=== PATIENT | male | born 1990 | race Caucasian/White ===

== ENCOUNTER 2022-08-19 10:32 | Emergency (ER) | payer OTHER, MEDICAID, SELFPAY ==
[2022-08-19 10:45] VITALS: BP 134/88; PULSE 103; RESP 15; TEMP 36.1; O2SAT 98; BMI 28.1
--- NOTE | 2022-08-19 10:54 | DI.US.S_ITS ---
PROCEDURE: US ABDOMEN LIMITED INDICATIONS: RLQ PAIN/ HERNIA EVAL TECHNIQUE: Real-time focused scanning was performed of the inguinal region, with image documentation. COMPARISON: None. FINDINGS: No inguinal hernia. Right inguinal lymph node with a normal reniform shape and reactive fatty hilum. IMPRESSION: No inguinal hernia. Dictated by: Dre Castillo M.D. on 08/19/2022 at 12:13 Approved by: Dre Castillo M.D. on 08/19/2022 at 12:14
--- NOTE | 2022-08-19 12:19 | ED_ITS ---
HPI - Abdominal Pain <Marta Javier PA-C - Last Filed: 08/19/22 13:14> General Chief Complaint: Abdominal Pain Stated Complaint: hernia pain Time Seen by Provider: 08/19/22 10:54 Source: patient Mode of arrival: Ambulatory History of Present Illness HPI narrative: 32-year-old male with history of known right inguinal hernia presents with concern for persistent right-sided hernia and testicular pain occurring with his work activity. Patient is a outdoor landscape architect, he is known about the hernia since 2019 and has had symptoms since 2017. He states in the last few months he has been having increasing problems where he is unable to continue working because he starts having intense pain and gets a tugging sensation from his right inguinal region into his groin seeming to pull up on his right testicle. He states it is also affecting his sex life, he and his are trying to have a child and there are times when he has discomfort associated with his hernia especially if he is had a hard work day where he is disinterested due to pain. He endorses sometimes when his pain is intense and he is doing physical activity he does feel that there is a lump in his groin on the right side and that he can kind of press on it and make it go away. He did state he had plan to see Dr. Gonzalez earlier this month but was unfortunately unable to make the appointment. He denies any current pain, also denies generalized abdominal pain, denies fevers, chills, nausea, vomiting, diarrhea, dysuria or any other symptoms. 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 Well-developed patient, in mild distress. HEAD: Atraumatic. Normocephalic. EYES: Pupils equal round and reactive. Extraocular motions intact. No scleral icterus. No injection or drainage. ENT: Nose without bleeding, purulent drainage. Airway patent. NECK: Trachea midline. Non tender CARDIOVASCULAR: Regular rate and rhythm without murmurs, gallops, or rubs. RESPIRATORY: Clear to auscultation. Breath sounds equal bilaterally. No wheezes, rales, or rhonchi. GASTROINTESTINAL: Abdomen soft, non-tender, nondistended, palpation over the R inguinal region does not reveal any masses or tenderness the patient endorses this is the location where he sometimes has pain. :complete exam is not perfomed. Testicles non-tender w/o mass. On palpation of inguinal canal on the right hernia is felt when pt coughs, this is not present on the left. There is no discoloration of skin of groin, no visible rash or lesions, no obvious swelling. Pt has no tenderness on exam. EXTREMITIES: No edema or joint tenderness. BACK: Nontender without deformity or crepitance. No flank tenderness. NEURO: AOx3. SKIN: No rash or erythema of visible areas Initial Vital Signs Initial Vital Signs: Vital Signs Temperature 97.0 F L 08/19/22 10:45 Pulse Rate 103 H 08/19/22 10:45 Respiratory Rate 15 08/19/22 10:45 Blood Pressure 134/88 08/19/22 10:45 Pulse Oximetry 98 08/19/22 10:45 Oxygen Delivery Method Room Air 08/19/22 10:45 <Svetlana Estrada DO - Last Filed: 08/19/22 19:05> Initial Vital Signs Initial Vital Signs: Vital Signs Temperature 97.0 F L 08/19/22 10:45 Pulse Rate 103 H 08/19/22 10:45 Respiratory Rate 15 08/19/22 10:45 Blood Pressure 134/88 08/19/22 10:45 Pulse Oximetry 98 08/19/22 10:45 Oxygen Delivery Method Room Air 08/19/22 10:45 Course <Marta Javier PA-C - Last Filed: 08/19/22 13:14> Orders Ordered: ED Orders 08/19/22 10:54 US abdomen limited Stat Vital Signs Vital signs: Vital Signs - 8 hr 08/19/22 10:45 Temperature 97.0 F L Pulse Rate 103 H Respiratory Rate 15 Blood Pressure 134/88 Pulse Oximetry 98 Oxygen Delivery Method Room Air <Svetlana Estrada DO - Last Filed: 08/19/22 19:05> Orders Ordered: ED Orders 08/19/22 10:54 US abdomen limited Stat Vital Signs Vital signs: Vital Signs - 8 hr 08/19/22 10:45 Temperature 97.0 F L Pulse Rate 103 H Respiratory Rate 15 Blood Pressure 134/88 Pulse Oximetry 98 Oxygen Delivery Method Room Air MDM - Abdominal Pain <Marta Javier PA-C - Last Filed: 08/19/22 13:14> Differential Diagnosis Differential diagnosis: Likely abdominal pain and other (inguinal hernia) Medical Records Attestation: I reviewed the patient's medical records. Imaging Data US - abdomen: Radiologist's Impression: [address] [address] Ultrasound Report Signed Patient: Girish Bennett MR#: [id number] : 1990 Acct:[id number] Age/Sex: 32 / M Date of Service: 08/19/22 Loc: ED Accession Number: [id number] ?? Procedure: US abdomen limited Ordering Provider: Marta Javier P.A-C PROCEDURE:? US ABDOMEN LIMITED ? INDICATIONS:? RLQ PAIN/ HERNIA EVAL ? TECHNIQUE:? Real-time focused scanning was performed of the inguinal region, with image documentation.? ? COMPARISON:? None. ? FINDINGS:? No inguinal hernia.? Right inguinal lymph node with a normal reniform shape and reactive fatty hilum. ? IMPRESSION:? No inguinal hernia. ? ? Dictated by: Dre Castillo M.D. on 08/19/2022 at 12:13 ? ? Approved by: Dre Castillo M.D. on 08/19/2022 at 12:14?? 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 Known history of inguinal hernia, ultrasound obtained today does not show evidence of inguinal hernia but physical exam is notable for 1 with palpation of the inguinal canal on the right. Patient has previously attempted to see General surgery as an outpatient but unfortunately was unable to make his appointment, lives on [address]. He seems very motivated to get this taken care of as it is affecting his sex life and his work life and personal life, today he is not in any significant pain and I have low concern for torsion or incarcerated hernia. He is encouraged to follow-up closely with General surgery, call their office today to get scheduled. Return precautions, ED precautions provided, follow-up plan discussed, all questions answered. 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 Discharge Plan Departure Patient Disposition: Home Clinical Impression: Hernia Activity Restrictions/Additional Instructions: *You have been diagnosed with inguinal hernia right *What to do: *Please continue to take your regular medications as directed. [ ] New medication prescriptions sent to your pharmacy: [ ] [ ] New medication written as a paper prescription [* ] No new medications given *Please follow up with your primary care provider in 2-3 days, call for an appointment. Let them know you were seen in the Emergency Department and that we ask that you be seen in follow up. We will electronically transmit a record of today's note if your PCP is in our system. We did do an ultrasound today which did show a right-sided inguinal lymph node but on physical exam I do feel that you have a hernia, noted when you cough, you have been having increasing pain with your work activity due to this and I strongly encourage you to see General surgery to get this further evaluated and determine if you are a candidate for surgery or which treatment is recommended at this point in time. There are 2 surgeons names listed in your paperwork below, you can also follow-up with the office you had plan to see earlier this month, do let them know you were seen in the emergency department today and we strongly recommended you get into be seen as an outpatient--for further eval/surgical planning if indicated so that you can get this taken care of. *If you do not have a primary care provider please contact the [facility] Resource line at [phone]. They will ask some questions about your medical history and help get you set up with a doctor in the community. *Return to Emergency Department if you should have any new, worsening or concerning symptoms, such as [fever greater than 101 F, shaking chills, worsening pain, persistent vomiting or other bothersome symptoms] Referrals: Liam Gonzalez MD [Physician] - Alberto Ca MD [Physician] - Miscellaneous,MD Shirin [Primary Care Provider] - Stand Alone Forms: Patient Portal/API <Svetlana Estrada DO - Last Filed: 08/19/22 19:05> Cosign ED Attending Levature Attestation: I was immediately available in the department for consultation. Documentation has been reviewed. Case was discussed. Agree with plan.
== END 2022-08-19 13:09 | disposition home or self-care (01) ==
PROVIDERS: Emergency Provider Student in an Organized Health Care Education/Training Program; Family Provider Family Medicine
DX: K40.90 Unilateral inguinal hernia, without obstruction or gangrene, not specified as recurrent (principal); N50.811 Right testicular pain
CPT/HCPCS: 76705; 99283

== ENCOUNTER 2022-09-07 10:47 | Day surgery (SDC) | payer OTHER, MEDICAID, SELFPAY ==
[2022-09-02 08:19] VITALS: BMI 28.1
--- NOTE | 2022-09-07 11:07 | SUR.PREOP ---
Arrived from [place]. Has been at a job site ([employer]) for 4 days and has not showered in that time. Given body was and taken to bathroom 1 to shower. CHG wipes given and instructed to clean abdomen and groin area after shower with CHG.
[2022-09-07 11:19] VITALS: BP 125/72; PULSE 108; RESP 18; TEMP 37.3; O2SAT 98; BMI 28.1
[2022-09-07] MEDS: LACTATED RINGERS 1,000 ML 42 ML IV ×2 (11:28→12:47)
--- NOTE | 2022-09-07 11:37 | PM.PREOP ---
Pre-operative Note COVID-19 COVID-19 status: Not tested Interval Note History & Physical reviewed/Exam performed by Physician: Yes Changes to H&P: No ASA Class (for procedural sedation): II
[2022-09-07] MEDS: CEFAZOLIN 2 GM/100 ML PREMIX 100 ML IV (12:30)
--- NOTE | 2022-09-07 12:43 | SUR.OPER ---
Supine on pink pad/ padded OR bed, head on pillow, arms padded and tucked at sides, legs uncrossed, safety belt at thigh, tape over blanket over lower legs .
[2022-09-07] MEDS: LIDOCAINE 1% 20 ML, EPINEPHrine 0.2 MG INJ (12:49)
[2022-09-07 14:34] VITALS: BP 139/80; PULSE 120; RESP 20; TEMP 36.6; O2SAT 98
--- NOTE | 2022-09-07 14:34 | P.OP_ITS ---
Operative Date/Time/Diagnoses Date of procedure: 09/07/22 Time of procedure: 14:34 Pre-op diagnosis: Bilateral inguinal hernia Post-op diagnosis: same Procedure & Clinicians Procedure: Laparoscopic bilateral inguinal hernia repair with mesh Same procedure as scheduled: Yes Surgeon: Liam Gonzalez [employer]employment [employer] Hearing Officer: Josef Jacob Operative Notes Procedure in detail: Surgeon: Liam Gonzalez MD The patient was given preoperative antibiotics. The patient was brought to the operating room, placed on the table in the supine position with the arms tucked and general anesthesia was induced. The abdomen was prepped and draped in the usual fashion. A time-out was performed. A 1 cm supraumbilical incision was created and dissection was carried down to the fascia. The fascia was scored transversely with cautery. A Peon clamp was used to butler the peritoneum. The Katherine port was placed and the abdomen was insufflated to 15 mmHg. The camera was inserted, there was no evidence of any injury from the entry. 5 mm ports were placed under direct vision in the mid left and mid right abdomen. The patient was positioned in steep Trendelenburg. We started on the right side which was the symptomatic side. We created a right peritoneal flap. The peritoneum was dissected off the cord structures. The dissection was carried past the midline. Next we turned our attention to the left side. The peritoneum was dissected off the left cord structures. A a large Bard mesh was brought in and placed over the defect with the medial edge crossing the midline. We then placed a large left Bard 3D max mesh over the left myopectineal orifice and a large right Bard 3DMax mesh over the right myopectineal orifice. Both pieces of mesh overlapped in the midline. We then closed both peritoneal flaps with a running 3-0 barbed suture. We took one last look around the abdomen and saw no other abnormalities. The suture was removed and accounted for. The 5 mm ports were removed under direct vision. The abdomen was desufflated. The Katherine port was removed. Additional local was injected into the fascia and the infraumbilical fascial incision was closed with 2 interrupted 0 Vicryl sutures. The skin incisions were closed with 4 Monocryl, Steri-Strips and Band-Aids. Post-operative Condition: stable Disposition: PACU
[2022-09-07 14:39] VITALS: BP 141/87; PULSE 118; RESP 14; O2SAT 98
[2022-09-07 14:44] VITALS: BP 149/85; PULSE 113; RESP 12; TEMP 36.9; O2SAT 95
[2022-09-07] MEDS: OXYCODONE/ACETAMINOPHEN 5/325 TABLET 1 TAB PO ×2 (14:56→15:21)
[2022-09-07 15:03] VITALS: BP 128/90; PULSE 105; RESP 16; TEMP 36.7; O2SAT 99
== END 2022-09-07 15:25 | disposition home or self-care (01) ==
PROVIDERS: Family Provider Family Medicine; Referring Provider Surgery; Visit Provider Surgery
PROC: 0YQ64ZZ Repair Left Inguinal Region, Percutaneous Endoscopic Approach (ICD-10-PCS; CPT 49650; principal; 2022-09-07 11:45)
DX: K40.20 Bilateral inguinal hernia, without obstruction or gangrene, not specified as recurrent (principal)
CPT/HCPCS: 49650; J0171; J0330; J0690; J1100; J1885; J2405; J2704; J3010

== ENCOUNTER 2023-04-26 07:49 | Emergency (ER) | payer OTHER, MEDICAID, SELFPAY ==
[2023-04-26 07:52] VITALS: BP 147/93; PULSE 84; RESP 18; TEMP 36.7; O2SAT 100; BMI 28.1
--- NOTE | 2023-04-26 07:57 | DI.RAD.S_ITS ---
PROCEDURE: XR HAND RT MIN 3V INDICATIONS: right hand injury TECHNIQUE: 3 views of the hand(s) acquired. COMPARISON: None. FINDINGS: Bones: There is a bone chip is adjacent to the 2nd metacarpal head. No dislocation. Soft tissues: No other suspicious calcifications. IMPRESSION: Bone chip adjacent is 2nd metacarpal head is indeterminate, possibly an avulsion injury from unspecified donor site. No dislocation identified on radiography. If there is high concern for further derangement, consider MRI evaluation. Dictated by: Jeff Lizama M.D. on 04/26/2023 at 8:27 Approved by: Jeff Lizama M.D. on 04/26/2023 at 8:29
--- NOTE | 2023-04-26 08:58 | ED.UPPEXIN ---
HPI - Extremity Injury (Upper) General Chief Complaint: Extremity Injury, Upper Stated Complaint: thinks he broke rt hand Time Seen by Provider: 04/26/23 08:05 Source: patient Mode of arrival: Ambulatory History of Present Illness HPI narrative: 32-year-old male who presents to the emergency department with concern for broken right hand. He states proximally 2 weeks ago he fell he had a drill in his right hand and landed with his hand on a metal beam. Patient states he has had pain and swelling particularly between the 2nd and 3rd metacarpals at the knuckles since then. He is able to fully flex and extend. But he states pain has been persistent and not improving. His swallowing has been persistent as well. He states nothing is worsening it just has not healed. He denies any other injuries. No cuts or lacerations otherwise. States otherwise healthy. Allergic to vancomycin. Related Data Previous Rx's Medication Instructions Recorded hydrocodone 5 mg-acetaminophen 325 1 tab PO Q8H PRN pain #7 tabs 09/07/22 mg tablet Allergies Allergy/AdvReac Type Severity Reaction Status Date / Time vancomycin Allergy Hives Verified 09/02/22 08:26 Review of Systems Review of Systems ROS Unobtainable: All systems reviewed & are unremarkable except as noted in HPI and below Patient History Surgical History Hx of knee surgery Social History household members: spouse Smoking Status: Former smoker alcohol intake: never Smoking Status: Former smoker alcohol intake frequency: holidays/special occasions only Substance Use Type: does not use Exam Narrative Exam Narrative: GENERAL: Alert and oriented x three, well-appearing male in mild distress. HEENT: Head normocephalic, atraumatic, EOMI, pupils reactive, face symmetric, moist mucous membranes NECK: Supple, full range of motion EXTREMITIES: Normal range of motion, no clubbing. Patient has some edema over the dorsum of the hand particularly between the 2nd and 3rd metacarpals. He has tenderness between the 2nd and 3rd metacarpals but not over the bone itself. Patient has full range of motion with no obvious deformity of the bones. He can flex and extend fully at all 5 fingers. Cap refills less than 2 seconds in all 5 fingers. Normal sensation throughout. 2+ radial pulse. No other bony tenderness in the hand or wrist. NEUROLOGICAL: Cranial nerves II through XII grossly intact. Moving all extremities SKIN: Warm, dry, no petechiae, no rashes or lesions otherwise noted. Initial Vital Signs Initial Vital Signs: Vital Signs Temperature 98.1 F 04/26/23 07:52 Pulse Rate 84 04/26/23 07:52 Respiratory Rate 18 04/26/23 07:52 Blood Pressure 147/93 H 04/26/23 07:52 Pulse Oximetry 100 04/26/23 07:52 Oxygen Delivery Method Room Air 04/26/23 07:52 Course Orders Ordered: ED Orders 04/26/23 07:57 XR hand RT min 3V Stat Vital Signs Vital signs: Vital Signs - 8 hr 04/26/23 07:52 04/26/23 09:20 Temperature 98.1 F Pulse Rate 84 Pulse Rate [Right Radial] 68 Respiratory Rate 18 Blood Pressure 147/93 H Pulse Oximetry 100 Oxygen Delivery Method Room Air MDM - Extremity Injury (Upper) Imaging Data Extremity x-ray #1: Radiologist's Impression: Girish Bennett??He/Him/His??32??M??1990 ? Allergy/Adv: vancomycin (More??) Close Hand X-Ray (Signed) Jeff Lizama - 04/26/23 Abdomen Ultrasound (Signed) Dre Castillo - 08/19/22 Launch?[address] [address] XRay Report Signed Patient: Girish Bennett MR#: [id number] : 1990 Acct:[id number] Age/Sex: 32 / M Date of Service: 04/26/23 Loc: ED Accession Number: [id number] Procedure: XR hand RT min 3V Ordering Provider: Svetlana Estrada D.O. PROCEDURE: XR HAND RT MIN 3V INDICATIONS: right hand injury TECHNIQUE: 3 views of the hand(s) acquired. COMPARISON: None. FINDINGS: Bones: There is a bone chip is adjacent to the 2nd metacarpal head. No dislocation. Soft tissues: No other suspicious calcifications. IMPRESSION: Bone chip adjacent is 2nd metacarpal head is indeterminate, possibly an avulsion injury from unspecified donor site. No dislocation identified on radiography. If there is high concern for further derangement, consider MRI evaluation. Dictated by: Jeff Lizama M.D. on 04/26/2023 at 8:27 Approved by: Jeff Lizama M.D. on 04/26/2023 at 8:29 [facility] Narrative Medical decision making narrative: 32-year-old male who comes to the emergency department with concern for broken right hand. X-ray does show what appears to be a small flake avulsion fracture on the right adjacent to the 2nd metacarpal consistent with patient's physical exam. Patient's injuries proximally 2-week-old appears to be intact neurovascularly as well as motor. Strength is equal throughout all 5 fingers. Plan for splint, follow up with Orthopedic surgery. Reviewed images with patient. Discharge Plan Departure Patient Disposition: Home Clinical Impression: Fracture, metacarpal Activity Restrictions/Additional Instructions: Follow-up with orthopedic surgery, call today to set up a follow up appointment. Contact information is below. Splint Care: Keep splint clean and dry. Elevated affected body part to decrease swelling. OK to use ice pack on the affected body part. Use for 15-20 minutes each time, for 5-6x per day. If you develop worsening pain, numbness, tingling, discoloration of the affected body part, loosen the splint by loosening the KEMI wrap, and either see your doctor for an urgent re-assessment, or return to the Emergency Department. Return to the Emergency Department for any new or worsening symptoms. Prescriptions: No Action hydrocodone-acetaminophen 5-325 mg tablet 1 tab PO Q8H PRN (Reason: pain) Qty: 7 0RF Referrals: Deann Cabrera MD [Physician] - Stand Alone Forms: Patient Portal/API
[2023-04-26 09:20] VITALS: PULSE 68
== END 2023-04-26 09:22 | disposition home or self-care (01) ==
PROVIDERS: Emergency Provider Emergency Medicine; Family Provider Family Medicine
DX: S62.300A Unspecified fracture of second metacarpal bone, right hand, initial encounter for closed fracture (principal); W18.30XA Fall on same level, unspecified, initial encounter
CPT/HCPCS: 73130; 99282; 99283

== ENCOUNTER 2023-08-12 14:27 | Emergency (ER) | payer OTHER, MEDICAID, SELFPAY ==
[2023-08-12 14:42] VITALS: BP 182/98; PULSE 114; RESP 18; TEMP 36.6; O2SAT 98; BMI 30.7
--- NOTE | 2023-08-12 14:52 | DI.US.S_ITS ---
PROCEDURE: US PERIPH VENOUS LOW EXTREM RT INDICATIONS: right calf pain and swelling TECHNIQUE: Real-time imaging, as well as color and pulse Doppler interrogation, were performed of the lower extremity deep veins from the inguinal ligament to the popliteal fossa, with documentation of the visualized calf veins. COMPARISON: None. FINDINGS: The common femoral, femoral, popliteal, and the visualized calf veins are normally compressible, and free of intraluminal thrombus. Color and pulse Doppler demonstrate normal phasic intraluminal flow. There is normal augmentation response to distal compression maneuver. Prominent lymph nodes are seen in the right groin, indeterminate possibly reactive. IMPRESSION: No findings of lower extremity deep venous thrombosis. Dictated by: Jeff Lizama M.D. on 08/12/2023 at 15:59 Approved by: Jeff Lizama M.D. on 08/12/2023 at 16:01
--- NOTE | 2023-08-12 16:10 | ED.EXTPRO ---
HPI - Extremity Problem General Chief complaint: Extremity Problem,Nontraumatic Stated complaint: r walls cellulitis Time Seen by Provider: 08/12/23 15:36 Source: patient Mode of arrival: Ambulatory History of Present Illness HPI Narrative: 33-year-old man with right lower extremity pain and swelling for 3-4 days. He noticed it 1st along his foot and then it moved up further along his right walls. He has not having calf pain. He has had a little bit of swelling and some redness and warmth in that area. No risk factors for DVT. Not having fevers now, he says that the 1st night he had this he felt like he had a fever. Patient reports he has been previously told he had high blood pressure. Related Data Previous Rx's Medication Instructions Recorded hydrocodone 5 mg-acetaminophen 325 1 tab PO Q8H PRN pain #7 tabs 09/07/22 mg tablet cephalexin 500 mg capsule 500 mg PO QID #14 caps 08/12/23 sulfamethoxazole 800 1 tab PO BID #14 tabs 08/12/23 mg-trimethoprim 160 mg tablet (Bactrim DS) Allergies Allergy/AdvReac Type Severity Reaction Status Date / Time vancomycin Allergy Hives Verified 08/12/23 14:48 Patient History Surgical History Hx of knee surgery Social History household members: spouse Smoking Status: Current every day smoker alcohol intake: never Smoking Status: Current every day smoker tobacco type: cigarettes alcohol intake frequency: a few times a week Substance Use Type: does not use Exam Initial Vital Signs Initial Vital Signs: Vital Signs Temperature 97.8 F 08/12/23 14:42 Pulse Rate 114 H 08/12/23 14:42 Respiratory Rate 18 08/12/23 14:42 Blood Pressure 182/98 H 08/12/23 14:42 Pulse Oximetry 98 08/12/23 14:42 Oxygen Delivery Method Room Air 08/12/23 14:42 Triage tachycardia is noted, heart rate by MD is 104 at time of exam Const Other: Alert appears to be in no distress Resp Other: Normal respiratory effort Neuro Other: Alert oriented no gross motor deficits Extrem Other: Right lower extremity has erythema warmth and swelling anteriorly over the right walls and ankle. This area is mildly tender. He has intact pulses he has intact light touch sensation and capillary refill. No obvious onychomycotic changes in the toes. Full range of motion in the right knee. 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 Not associated with a traumatic injury, differential diagnosis includes cellulitis/abscess and DVT as well as peripheral edema. Ultrasound is negative for DVT exam suggest he does have a cellulitis. He is nontoxic in appearance he had a tachycardia at triage which was resolved when I saw him. He does not appear toxic I think it is appropriate to start him on oral antibiotics with return precautions and he is to follow up with primary care. Additionally he was noted to be hypertensive patient was advised that he should follow up with primary care to seek treatment for this. Discharge Plan Departure Patient Disposition: Home Clinical Impression: Cellulitis Qualifiers: Site of cellulitis: extremity Site of cellulitis of extremity: lower extremity Laterality: right Qualified Code(s): L03.115 - Cellulitis of right lower limb Instructions: DI for Cellulitis -- Adult Activity Restrictions/Additional Instructions: Start the prescribed antibiotics as soon as possible and take both antibiotics further full courses of 7 days. Elevate your right leg above the level of the heart when able. If you are having increased redness or swelling fevers or shaking chills recheck in the emergency department. Follow up soon with primary care, additionally, we note that you have an elevated blood pressure today, you are to young to have untreated hypertension, it is very important that you establish with a primary care doctor and have your blood pressure treated. Prescriptions: New sulfamethoxazole-trimethoprim [Bactrim DS] 800-160 mg tablet 1 tab PO BID Qty: 14 0RF cephalexin 500 mg capsule 500 mg PO QID Qty: 14 0RF No Action hydrocodone-acetaminophen 5-325 mg tablet 1 tab PO Q8H PRN (Reason: pain) Qty: 7 0RF Stand Alone Forms: Patient Portal/API
[2023-08-12 16:24] VITALS: BP 186/107; PULSE 106; RESP 16; O2SAT 99
== END 2023-08-12 16:25 | disposition home or self-care (01) ==
PROVIDERS: Emergency Provider Emergency Medicine; Family Provider Family Medicine
DX: L03.115 Cellulitis of right lower limb (principal)
CPT/HCPCS: 93971; 99281; 99283